=== PATIENT | female | born 1990 ===

== ENCOUNTER 2022-11-11 09:17 | Outpatient (REF) | payer BC, SELFPAY ==
[2022-11-11 09:47] LABS: MANUAL DIFF FLAG NO
[2022-11-11 10:01] LABS: Basophils Percent Auto 0.4 % (0-2); Eosinophils Absolute Auto 0.4 X10*3/uL (0.0-0.4); Eosinophils Percent Auto 4.6 % (0-4); Hematocrit 38.1 % (37.0-47.0); Imm Gran Abs Auto 0.02 X10*3/uL (0.00-0.03); Imm Gran Pct Auto 0.2 % (0.0-0.4); Lymphocytes Absolute Auto 2.8 X10*3/uL (1.2-4.9); Lymphocytes Percent Auto 34.1 % (20-40); Mean Corpuscular HGB Conc 34.1 g/dl (31.0-35.0); Mean Corpuscular Volume 87.8 fL (80.0-98.0); Mean Platelet Volume 9.9 fL (9.4-12.3); Monocytes Absolute Auto 0.4 X10*3/uL (0.1-1.2); Monocytes Percent Auto 4.4 % (2-11); Neutrophils Absolute Auto 4.6 x10*3/uL (2.0-8.3); Neutrophils Percent Auto 56.3 % (45-73); Platelet Count 409 X10*3/uL (160-400); Red Blood Count 4.34 X10*6/uL (4.20-5.50); Red Cell Distribution Width 11.6 % (11.0-16.0); White Blood Count 8.2 X10*3/uL (4.8-10.8)
[2022-11-11 10:50] LABS: Alanine Aminotransferase 25 U/L (0-31); Albumin Level 4.3 g/dL (3.5-5.0); Alkaline Phosphatase 90 U/L (39-117); Anion Gap 11 (12-20); Aspartate Amino Transferase 22 U/L (5-31); Bilirubin Direct 0.1 mg/dL (0.0-0.5); Bilirubin Total 0.4 mg/dL (0.0-1.0); Blood Urea Nitrogen 7 mg/dL (9-16); Calcium 9.6 mg/dL (8.4-10.2); Carbon Dioxide 25 mmol/L (22-29); Chloride 105 mmol/L (96-108); Cholesterol 307 mg/dL; Estimated Glomerular Filt Rate > 60; Glucose Random 102 mg/dL (60-115); HDL Cholesterol 44 mg/dL; LDL Cholesterol Calculated 189 mg/dl; Potassium 4.4 mmol/L (3.3-5.1); Sodium 137 mmol/L (135-145); Total Protein 7.8 g/dL (6.5-8.0); Triglycerides 372 mg/dL
[2022-11-11 11:09] LABS: HBS Num1 0.66 mIU/mL (0-7.99); HBc Num1 0.13 S/CO (0.00-0.79); HBsAGNum1 0.36 S/CO (0.00-0.99); Hepatitis B Core Antibody Nonreactive (Nonreactive); Hepatitis B Surface Antigen Negative (Negative); ~Hepatitis B Surface Antibody NONREACTIVE (Nonreactive)
[2022-11-13 12:32] LABS: TS Negative Control Passed; TS Panel A 0; TS Panel B 1; TS Positive Control Passed; TSpotTB Negative (Negative)
[2022-11-13 19:04] LABS: HCV Log PCR <1.18 NOT DETECTED Log IU/mL (NOT DETECTED); HepC Viral Load <15 NOT DETECTED IU/mL (NOT DETECTED)
== END 2022-11-11 09:18 | disposition home or self-care (01) ==
LOC: HO.LAB 09:17
PROVIDERS: Visit Provider Physician Assistant Medical
DX: L40.0 Psoriasis vulgaris (principal); D23.62 Other benign neoplasm of skin of left upper limb, including shoulder
CPT/HCPCS: 36415; 80048; 80061; 80076; 85025; 86481; 86704; 86706; 87340; 87522

== ENCOUNTER 2023-05-24 11:01 | Outpatient (AMB) | payer BC, SELFPAY ==
--- NOTE | 2023-05-24 11:08 | A.OFFPC_ITS ---
Vital Signs 05/24/23 11:18 Height 5 ft 0.5 in Weight 165 lb BMI 31.7 BP 116/68 Blood Pressure Location Lt brachial Position Sitting Respiration 13 Pulse 99 Pulse Source Pulse Oximeter Temp 96.4 F L Temp Source Temporal Artery Scan Pulse Oximetry (%) 96 Oxygen Delivery Method Room Air Intake Visit Reasons: transfer from [facility], request a physical Intake Note: Patient is here for the first time as she has not been seen in several years. Patient mentions the following concerns: 1. Increase of migraines, inconsistent. 2. Left eye pain/twitching when under extreme stress 3. Patient reports inconsistent, heavy periods and is concerned for reproductive health 4. Patient notices an increase in weight 5. Hair thinning, main area on the right side of scalp. 6. Patient reports severe plaque psoriasis, see's [facility]. 7. Possibility of IBS. Public Information Officer Required: No Accompanied by: self Allergies No Known Allergies Allergy (Verified 05/24/23 11:35) Medication List - Last Reconciled 05/24/23 by DAIN Swenson- albuterol sulfate 1.25 mg inhalation QID PRN albuterol sulfate 90 mcg/actuation 2 puffs inhalation Q6H PRN cetirizine (Zyrtec) 10 mg PO DAILY PRN ixekizumab (Taltz Syringe) mg subcut triamcinolone acetonide 0.1% appl topical Tobacco use date assessed: 05/24/23 Dental Screening Dental Screen Date: 05/24/23 Did you have a dental visit in the last 12 months?: Yes Did you have a dental problem in the last 6 months where you did not have access to dental care?: No Was dental information given to patient?: Patient has dentist HPI HPI Comments History of Present Illness Details no previous medical records Here today for CPE. 32-year-old female with hyperlipidemia, psoriasis, migraines, mild intermittent asthma, seasonal allergies, bilat TMJ, MDD, PTSD, onychomycosis Health maintenance: pap not active currently - referral placed today vaccines: flu shot - will do today. Thinks otherwise UTD, will investigate Tdap. Dental - routine Skin - Derm active Specialists: Derm Opth[facility] - wears glasses Surgery - denies Hospital stays - none recent She is adopted Family hx of cancer - cannot explain further. Family history: Mom alive. Hx of heart condition unsure Father alive 2 brothers, 1 sister older, younger half brother on Dads side [facility] Medical History (Updated 05/24/23 @ 13:30 by Josi Couch CMA) Seasonal allergies Psoriasis Surgical History (Updated 05/24/23 @ 13:31 by Josi Couch CMA) No pertinent past surgical history Social History (Updated 05/24/23 @ 11:33 by Josi Couch CMA) Household Members: Other Household Members Other:: 2 roommates Housing: Apart[address] 75 years or older and lives alone: No Alcohol intake: current Alcohol intake frequency: holidays/special occasions only Patient Tobacco Use Status: Never used Tobacco e-Cigarette/Vaping Use: Never Used Substance Use Type: Marijuana service: No Current occupational status: employed Current occupation: [employer] Cognitive needs: No Hearing needs: No Vision needs: No Questionnaire PHQ-9 Over the last 2 weeks, how often have you been bothered by any of the following problems? 1. Little interest or pleasure in doing things: not at all 2. Feeling down, depressed, or hopeless: not at all 3. Trouble falling or staying asleep, or sleeping too much: not at all 4. Feeling tired or having little energy: not at all 5. Poor appetite or overeating: not at all 6. Feeling bad about yourself - or that you are a failure or have let yourself or your family down: not at all 7. Trouble concentrating on things, such as reading the newspaper or watching television: not at all 8. Moving or speaking so slowly that other people could have noticed. Or the opposite - being so fidgety or restless that you have been moving around a lot more than usual: not at all 9. Thoughts that you would be better off or of hurting yourself in some way: not at all Total score: 0 Depression Screening Interpretation: Negative Depression Screening Done: Yes 63246 - PHQ-9 Billing: Yes Source: Developed by Drs. Louie Monet, Georgiana Smith, Benjamin Mojica and colleagues, with an educational lakeisha from [employer]. Thrive Questionnaire Date Thrive assessed: 05/24/23 I am a: Patient What is your living situation today?: I have a steady place to live Within the past 12 months, did the food you bought not last and you didn't have the money to get more?: Never true Within the past 12 months, did you worry whether your food would run out before you got money to buy more?: Never true Do you have trouble paying for medicines?: No Do you have trouble getting transportation to medical appointments?: No Do you have trouble paying your heating and electricity bill?: No Do you have trouble taking care of your child, family member or friend?: No Do you have trouble with day-to-day activities such as bathing, preparing meals, shopping, managing finances, etc.?: No Are you currently unemployed and looking for a job?: No Are you interested in more education?: No Please select the resources that you would like help with: None Currently or been in a relationship where the following occur: no concerns reported THRIVE Score: 0 AUDIT C Alcohol Use Questionnaire (AUDIT-C) 1. How often do you have a drink containing alcohol?: Never 3. How often do you have six or more drinks on one occasion?: Never Total Score: 0 Score Reviewed/Action Taken: Yes THERESA-7 AMB Questionnaire THERESA-7 Date THERESA - 7 assessed: 05/24/23 Feeling nervous, anxious, or on edge: 0 = Not at all Not being able to stop or control worryin = Not at all Worrying too much about different things: 0 = Not at all Trouble relaxin = Not at all Being so restless that it is hard to sit still: 0 = Not at all Becoming easily annoyed or irritable: 0 = Not at all Feeling afraid as if something awful might happen: 0 = Not at all Total THERESA-7 score (0-4 normal; 5-9 mild; 10-14 moderate; 15-21 severe): 0 Source: Developed by Drs. Louie Monet, Georgiana Smith, Benjamin Mojica and colleagues, with an educational lakeisha from [employer]. THERESA-7 Assessment Billing THERESA-7 Assessment Tool: THERESA-7 Assessment 16914 Review of Systems Const Details: Constitutional: Denies fever. Skin: Denies rash. Eye: Denies eye pain. ENMT: Denies sore throat and nasal congestion. Respiratory: Denies shortness of breath and cough. Gastrointestinal: Denies nausea, vomiting or abdominal pain. Cardiovascular: Denies chest pain and syncope. Genitourinary: Denies dysuria. Musculoskeletal: Denies back pain and extremity pain. Neurologic: Denies headaches, confusion, and weakness. Psychiatric: Denies suicidal thoughts and substance abuse. Allergy/ Immunologic: Denies impaired immunity. Physical exam (Primary Care) Vital Signs: Last Vital Signs Temp 96.4 F L 05/24/23 11:18 Pulse 99 05/24/23 11:18 Resp 13 05/24/23 11:18 BP 116/68 05/24/23 11:18 Pulse Ox 96 05/24/23 11:18 Oxygen Delivery Method Room Air 05/24/23 11:18 BMI result Body Mass Index 31.7 BMI Assessment/Plan discussion: High BMI High, discussed plan: lifestyle Tobacco/Smoking Status: Tobacco use Status Tobacco use date assessed 05/24/23 05/24/23 11:33 Patient Tobacco Use Status Never used Tobacco 05/24/23 11:33 e-Cigarette/Vaping Use Never Used 05/24/23 11:33 PHQ-9: PHQ-9 Score PHQ-9: Total score 0 05/24/23 13:29 Depression Screening Interpretation: Negative Thrive Assessment: Date of Thrive Assessment Date Thrive assessed 05/24/23 05/24/23 11:34 Currently or been in a relationship where the following occur: no concerns reported Const Other: General: Well developed, well nourished, in no acute distress. Appears stated age. Head: Normocephalic, atraumatic. Eyes: Pupils are equal, round and reactive to light and accommodation. Conjunctivae are clear. Vision grossly normal. Ears: TMs clear AU, EACS WNL Nose: Patent, without discharge. Mouth: There are no ulcers or lesions noted. No inflammation, no post nasal drip, no plaques nor exudates. Neck: Supple, no adenopathy or thyromegaly. Lungs: Clear to auscultation bilaterally. No rales, rhonchi or wheeze noted. Good air flow in all [place]. Heart: Regular rate and rhythm. No murmurs, click, rubs or gallops are noted. Abdomen: Bowel sounds present in all quadrants. The abdomen is soft, TENDER IN LLQ WITH PERITEONAL SIGNS. PT REPORTS CHRONIC, with no masses or organomegaly noted. No hernias are noted. Musculoskeletal: Joints are nontender, without swelling, redness, or effusions. Range of motion is observed to be normal. Pulses: Peripheral pulses are equal and palpable bilaterally. Extremities: No clubbing, cyanosis nor edema is noted. Neurologic: Gait and station normal. Cranial Nerves 2-12 intact. Motor strength grossly symmetrical and intact. No sensory loss. Balance normal. Skin: No rashes, ulcers, or lesions noted. Turgor is good. Skin color is good. FUNGAL TOE NAILS BILAT FEET Psych: Normal eye contact, affect and mood appropriate, and normal interactions. Patient is alert and appropriate to context. Office Procedures Flu Questionnaire Does the patient have a severe egg allergy?: No Does the patient have severe life threatening allergies?: No Does the patient have a fever or illness today?: No Has the patient ever had Guillain-Comstock Syndrome?: No Has the patient ever had any past reaction to a flu shot?: No Immunizations flu vacc [id number] 6mos up(PF) 60 mcg(15 mcgx4)/0.5 mL IM syringe Performing Provider: LAMBERT Swenson Performing Location: [facility] Administered by: Josi Couch CMA on 05/24/23 12:25 Dose Route Admin Location Dispensed Lot Number Expiration Date NDC Material Mixer 0.5 mL IM Left Deltoid 0.5 mL [id number] 09/26/23 09663-892-35 Visual Revenue VIS Given Date VIS Provided VIS Publication Date 05/24/23 Single Vaccine 20 Eligibility Eligibility Date Funding Source Not [facility] Eligible 05/24/23 Private Assessment and Plan Assessment & Plan (1) Annual physical exam: Code(s): Z00.00 - Encounter for general adult medical examination without abnormal findings (2) Hyperlipidemia: Comment: Noted on labs October of 2022. We will repeat and follow up with her. Code(s): E78.5 - Hyperlipidemia, unspecified Qualifiers: Hyperlipidemia type: mixed hyperlipidemia Qualified Code(s): E78.2 - Mixed hyperlipidemia (3) Laboratory exam ordered as part of routine general medical examination: Code(s): Z00.00 - Encounter for general adult medical examination without abnormal findings (4) Cervical cancer screening: Code(s): Z12.4 - Encounter for screening for malignant neoplasm of cervix Plan: Refer to [place] [facility] for routine female care to include Pap smear (5) Oligomenorrhea: Comment: Refer to [place] [facility] for evaluation and treatment Code(s): N91.5 - Oligomenorrhea, unspecified Qualifiers: Oligomenorrhea type: unspecified type Qualified Code(s): N91.5 - Ol igomenorrhea, unspecified (6) Onychomycosis: Comment: Affecting toenails bilat feet. Encouraged her to ask Dermatology whom she is currently active with about this. Educated on the chronicity of this problem. She reports that she does not have a lot of funds to manage her medical care and would like to reduce referrals and workup at this time. Encouraged vinegar and water soaks every night. Avoiding dark-colored [place]. Use of topical salicylic acid or the like to help. If interested in the future refer to Podiatry Code(s): B35.1 - Tinea unguium (7) Psoriasis: Comment: Managed by Dr. Gonzalez dermatology. Currently receiving [facility] Code(s): L40.9 - Psoriasis, unspecified (8) MDD (major depressive disorder): Comment: PHQ 0 TODAY. NOT CURRENTLY ON ANY MEDICATIONS OR ACTIVE WITH A COUNSELOR. PATIENT WAS TEARFUL DURING EXAM WHEN TALKING ABOUT HER HISTORY. WE WILL NEED TO CONTINUE TO FOLLOW UP ON THIS AT FUTURE VISITS Code(s): F32.9 - Major depressive disorder, single episode, unspecified Qualifiers: Active/Remission status: in full remission Major depression recurrence: recurrent Qualified Code(s): F33.42 - Major depressive disorder, recurrent, in full remission (9) Seasonal allergic rhinitis: Comment: CHRONIC, MANAGED BY [id number] ANTIHISTAMINES. CONTINUE Code(s): J30.2 - Other seasonal allergic rhinitis Qualifiers: Allergic rhinitis trigger: unspecified Qualified Code(s): J30.2 - Other seasonal allergic rhinitis (10) Mild intermittent asthma in adult without complication: Comment: WITH P.R.N. USE OF MICHELLE ONLY. Code(s): J45.20 - Mild intermittent asthma, uncomplicated (11) Migraine headache without aura: Comment: MANAGED BY [id number] MEDICATIONS. Code(s): G43.009 - Migraine without aura, not intractable, without status migrainosus Qualifiers: Intractability: not intractable Status migrainosus presence: without status migrainosus Qualified Code(s): G43.009 - Migraine without aura, not intractable, without status migrainosus Orders: Orders Influenza [id number] Immunization Today Z23 - Encounter for immunization Lipid Panel Today E78.5 - Hyperlipidemia, unspecified, Z00.00 - Encounter for general adult medical examination without abnormal findings TSH reflex Free T4 Today E78.5 - Hyperlipidemia, unspecified, Z00.00 - Encounter for general adult medical examination without abnormal findings Referrals [facility] Referral N91.5 - Oligomenorrhea, unspecified, Z12.4 - Encounter for screening for malignant neoplasm of cervix Patient Instructions: Health screenings for women ages 18 to 39 You should visit your health care provider from time to time, even if you are healthy. The purpose of these visits is to: Screen for medical issues Assess your risk for future medical problems Encourage a healthy lifestyle Update vaccinations and other preventive care services Help you get to know your provider in case of an illness Information Even if you feel fine, you should still see your provider for regular checkups. These visits can help you avoid problems in the future. For example, the only way to find out if you have high blood pressure is to have it checked regularly. High blood sugar and high cholesterol levels also may not have any symptoms in the early stages. A simple blood test can check for these conditions. There are specific times when you should see your provider or receive specific health screenings. The [place] Preventive Services Task Force publishes a list of recommended screenings. Below are screening guidelines for women ages 18 to 39. BLOOD PRESSURE SCREENING Your blood pressure should be checked at least once every 3 to 5 years if: Your blood pressure is in the normal range (top number less than 120 mm Hg and bottom number less than 80 mm Hg) You don't have risk factors for high blood pressure Ask your provider if you need your blood pressure checked more often if: The top number is 120 to 129 mm Hg or the bottom number is 70 to 79 mm Hg You have diabetes, heart disease, kidney problems, are overweight, or have certain other health conditions You have a first-degree relative with high blood pressure You are Black You had high blood pressure during a If the top number is 130 mm Hg or greater or the bottom number is 80 mm Hg or greater, this is considered stage 1 hypertension. Schedule an appointment with your provider to learn how you can reduce your blood pressure. Watch for blood pressure screenings in your area. Ask your provider if you can stop in to have your blood pressure checked. BREAST CANCER SCREENING Experts do not agree about the benefits of breast self-exams in finding breast cancer or saving lives. Talk to your provider about what is best for you. A screening mammogram is not recommended for most women under age 40. Your provider may discuss and recommend mammograms, MRI scans, or ultrasounds if you have an increased risk for breast cancer, such as: A mother or sister who had breast cancer at a young age (most often starting s creening earlier than the age the close relative was diagnosed) You carry a high-risk genetic marker CERVICAL CANCER SCREENING Cervical cancer screening should start at age 21 years unless your provider advises otherwise. After the first test: Women ages 21 through 29 should have a Pap test every 3 years. Exoprts do not agree on whether HPV testing is recommended for this age group. Women ages 30 through 65 should be screened with either a Pap test every 3 years or the HPV test every 5 years or both tests every 5 years (called cotesting ). Women who have been treated for precancer (cervical dysplasia) should continue to have Pap tests for 20 years after treatment or until age 65, whichever is longer. If you have had your uterus and cervix removed (total hysterectomy), and you have not been diagnosed with cervical cancer or precancer (high grade cervical neoplasia), you do not need cervical cancer screening. CHOLESTEROL SCREENING Cholesterol screening should begin at: Age 45 for women with no known risk factors for coronary heart disease Age 20 for women with known risk factors for coronary heart disease Repeat cholesterol screening should take place: Every 5 years for women with normal cholesterol levels More often if changes occur in lifestyle (including weight gain and diet) More often if you have diabetes, heart disease, kidney problems, or certain other conditions DIABETES SCREENING You should be screened for diabetes starting at age 35 and then repeated every 3 years if you have no risk factors for diabetes. Screening may need to start earlier and be repeated more often if you have other risk factors for diabetes, such as: You have a first degree relative with diabetes. You are overweight or have obesity. You have high blood pressure, prediabetes, or a history of heart disease. Screening for diabetes should be done if you are planning to become and you are overweight and have other risk factors such as high blood pressure. DENTAL EXAM Go to the dentist once or twice every year for an exam and cleaning. Your dentist will evaluate if you need more frequent visits. EYE EXAM Have an eye exam every 5 to 10 years before age 40. If you have vision problems, have an eye exam every 2 years or more often if recommended by your provider. You should have an eye exam that includes an examination of your retina (back of your eye) at least every year if you have diabetes. IMMUNIZATIONS Commonly needed vaccines include: Flu shot: get one every year. COVID-19 vaccine: ask your provider what is best for you. Tetanus-diphtheria and acellular pertussis (Tdap) vaccine: have one at or after age 19 as one of your tetanus-diphtheria vaccines if you did not receive it as an adolescent. Tetanus-diphtheria: have a booster (or Tdap) every 10 years. Varicella vaccine: receive 2 doses if you never had chickenpox or the varicella vaccine. Hepatitis B vaccine: receive 2, 3, or 4 doses, depending on your exact circumstances. Measles, mumps, and rubella (MMR) vaccine: receive 1 to 2 doses if you are not already immune to MMR. Your provider can tell you if you are immune. Ask your provider about the human papillomavirus (HPV) vaccine if: You have not received the HPV vaccine in the past You have not completed the full vaccine series (you should catch up on this shot) Ask your provider if you should receive other immunizations if you have certain health problems that increase your risk for some diseases such as pneumonia. INFECTIOUS DISEASE SCREENING Women who are sexually active should be screened for chlamydia and gonorrhea up until age 25. Women 25 years and older should be screened for chlamydia and gonorrhea if at high risk. Screening for hepatitis C: All adults ages 18 to 79 should get a one-time test for hepatitis C. people should be screened at every . Screening for human immunodeficiency virus (HIV): All people ages 15 to 65 should get a one-time test for HIV. Depending on your lifestyle and medical history, you may also need to be screened for infections such as syphilis and HIV, as well as other infections. PHYSICAL EXAM All adults should visit their provider from time to time, even if they are healthy. The purpose of these visits is to: Screen for disease Assess your risk of future medical problems Encourage a healthy lifestyle Update your vaccinations and other preventive care services Maintain a relationship with a provider in case of an illness Your height, weight, and BMI should be checked at every exam. During your exam, your provider may ask you about: Depression and anxiety Diet and exercise Alcohol and tobacco use Safety issues, such as using seat belts, smoke detectors, and intimate partner violence Your medicines and risk for interactions SKIN SELF-EXAM Your provider may check your skin for signs of skin cancer, especially if you're at high risk, such as if you: Have had skin cancer before Have close relatives with skin cancer Have a weakened immune system OTHER SCREENING Talk with your provider about colon cancer screening if you have a strong family history of colon cancer or polyps, or if you have had inflammatory bowel disease or polyps yourself. Routine bone density screening of women under 40 is not recommended. Coding Level of Care Code New Pt Prev Care 18-39yr([id number] Diagnoses Annual physical exam Z00.00 Mixed hyperlipidemia E78.2 Hyperlipidemia type: mixed hyperlipidemia Laboratory exam ordered as part of routine general medical examination Z00.00 Cervical cancer screening Z12.4 Oligomenorrhea, unspecified type N91.5 Oligomenorrhea type: unspecified type Onychomycosis B35.1 Psoriasis L40.9 Recurrent major depressive disorder, in full remission F33.42 Active/Remission status: in full remission Major depression recurrence: recurrent Seasonal allergic rhinitis, unspecified trigger J30.2 Allergic rhinitis trigger: unspecified Mild intermittent asthma in adult without complication J45.20 Migraine without aura and without status migrainosus, not intractable G43.009 Intractability: not intractable Status migrainosus presence: without status migrainosus Additional Codes THERESA-7 Assessment Billing - THERESA-7 Assessment Tool: THERESA-7 Assessment 26095 ([id number])
[2023-05-24 11:18] VITALS: BP 116/68; PULSE 99; RESP 13; TEMP 35.8; O2SAT 96; BMI 31.7
== END 2023-05-24 12:23 | disposition home or self-care (01) ==
PROVIDERS: PCP Nurse Practitioner Family; Visit Provider Nurse Practitioner Family
DX: Z00.00 Encounter for general adult medical examination without abnormal findings (principal); E78.2 Mixed hyperlipidemia; F33.42 Major depressive disorder, recurrent, in full remission; Z23 Encounter for immunization; L40.9 Psoriasis, unspecified; N91.5 Oligomenorrhea, unspecified; B35.1 Tinea unguium; J30.2 Other seasonal allergic rhinitis; J45.20 Mild intermittent asthma, uncomplicated; G43.009 Migraine without aura, not intractable, without status migrainosus
CPT/HCPCS: 90471; 90686; 99385

== ENCOUNTER 2024-03-20 13:20 | Outpatient (REF) | payer BC, SELFPAY ==
[2024-03-23 01:57] LABS: TS Negative Control Passed; TS Panel A 0; TS Panel B 0; TS Positive Control Passed; TSpotTB Negative (Negative)
== END 2024-03-20 13:21 | disposition home or self-care (01) ==
LOC: HO.LAB 13:20
PROVIDERS: Visit Provider Physician Assistant Medical
DX: L40.0 Psoriasis vulgaris (principal)
CPT/HCPCS: 36415; 86481

== ENCOUNTER 2024-05-26 08:04 | Outpatient (AMB) | payer BC, SELFPAY ==
--- NOTE | 2024-05-26 08:15 | MHC.PC.OV ---
Vital Signs 05/26/24 08:21 Height 5 ft 1 in Weight 160 lb 4 oz BMI 30.3 BP 98/66 Blood Pressure Location Lt brachial Position Sitting Respiration 12 Pulse 99 Pulse Source Pulse Oximeter Temp 97.1 F Temp Source Oral Pulse Oximetry (%) 98 Oxygen Delivery Method Room Air Intake Visit Reasons: CPE Intake Note: annual cpe, patient also needs referral for extruder tender, and patient complaining of blood blisters all around her body Motor Equipment Lieutenant Required: No Allergies No Known Allergies Allergy (Verified 05/26/24 08:31) Medication List - Last Reconciled 05/26/24 by Carrie Vogt, REAL ESTATE DIRECTOR- albuterol sulfate 1.25 mg inhalation QID PRN albuterol sulfate 90 mcg/actuation 2 puffs inhalation Q6H PRN cetirizine (Zyrtec) 10 mg PO DAILY PRN ixekizumab (Taltz Syringe) mg subcut triamcinolone acetonide 0.1% appl topical Tobacco use date assessed: 05/26/24 Dental Screening Dental Screen Date: 05/26/24 Did you have a dental visit in the last 12 months?: Yes Did you have a dental problem in the last 6 months where you did not have access to dental care?: No Was dental information given to patient?: Patient has dentist HPI HPI Comments History of Present Illness Details Here today for CPE. 33-year-old female with hyperlipidemia, psoriasis, migraines, mild intermittent asthma, seasonal allergies, bilat TMJ, MDD, PTSD, onychomycosis, hypermobility, IBS Health maintenance: pap not active currently - referral placed today vaccines: flu shot - will do today along w/ Tdap Dental - routine Skin - Derm active Specialists: Derm Optho - wears glasses [facility] - denies Hospital stays - none recent She is adopted Family hx of cancer - cannot explain further. Family history: Mom alive. Hx of heart condition unsure Father alive 2 brothers, 1 sister older, younger half brother on Dads side - The patient is a 33-year-old female presenting for an annual wellness exam and chronic condition management. - Noted history of hyperlipidemia, with past elevated cholesterol. - Psoriasis treated with biologics, currently on Taltz. - Migraines occur occasionally, most notably last winter. - Asthma managed primarily with albuterol inhaler; recent RSV episode managed with urgent care visit. - Allergies managed with [id number] medications like Zyrtec. - Expressed interest in exploring fertility options. - Discussed current stress exacerbated by housing instability. Social History - Housing instability noted, temporary accommodation in [place]. - Desires referral to dietitian for obesity management but wants to wait d/t cost @ this time - Uses marijuana, has prior use reported. - Exercises including yoga, but currently lifestyle is more sedentary. - Stress from housing situation impacting well-being; seeks stability. - Past weight fluctuations noted. Review of Systems - Respiratory: Reports episodes of asthma, recent RSV. : IBS - Musculoskeletal: joint hypermobility, knees dislocate, L shoulder, transverse low back; generalized aches - Neurological: Reports history of migraines, last exacerbated in winter. - Allergic/Immunologic: Reports seasonal allergies managed with Zyrtec. Physical Exam General: Well developed, well nourished, in no acute distress. Appears stated age. Head: Normocephalic, atraumatic. Eyes: Pupils are equal, round and reactive to light and accommodation. Conjunctivae are clear. Vision grossly normal. Ears: TMs clear AU, EACS WNL Nose: Patent, without discharge.Mouth: There are no ulcers or lesions noted. No inflammation, no post nasal drip, no plaques nor exudates. Neck: Supple, no adenopathy or thyromegaly. Breast: Edu on SBE Lungs: Clear to auscultation bilaterally. No rales, rhonchi or wheeze noted. Good air flow in all [place]. Heart: Regular rate and rhythm. No murmurs, click, rubs or gallops are noted. Abdomen: Bowel sounds present in all quadrants. The abdomen is soft, nontender, with no masses or organomegaly noted. No hernias are noted. : Deferred. Reviewed recommendations for routine [facility] Musculoskeletal: Joints are nontender, without swelling, redness, or effusions. Range of motion is hypermobile Pulses: Peripheral pulses are equal and palpable bilaterally. Extremities: No clubbing, cyanosis nor edema is noted. Neurologic: Gait and station normal. Cranial Nerves 2-12 intact. Motor strength grossly symmetrical and intact. No sensory loss. Balance normal. Skin: No rashes, ulcers, or lesions noted. Turgor is good. Skin color is good. Hair and nails are without abnormalities. Psych: Normal eye contact, affect and mood appropriate, and normal interactions. Patient is alert and appropriate to context. Results - Labs: Past labs in 2022 indicated high cholesterol levels. Discussion Notes During the consultation, we reviewed the patient's chronic health issues and management strategies. This included counseling about the significance of continuing Tdap and influenza vaccinations, even in the context of biologic treatments like Taltz. We discussed an extensive referral network, addressing OBGYN and rheumatology consultation for hypermobility and concerns about fertility. I advised signing up for the patient portal to facilitate better management of referrals and appointments. We discussed the possibility of dietary support with a dietitian contingent on insurance coverage. Housing instability was addressed as a factor impacting stress and health, and anticipatory guidance was given towards achieving better housing stability. - Recommends Tdap and influenza vaccinations during visit. - Encouraged joining patient portal for improved communication. - Discussed benefits of non-live vaccines despite ongoing immunosuppressive therapy. - Discussed regular check-in with specialist dietary support. Assessment and Plan 1. Hyperlipidemia: Patient shows a history of elevated cholesterol. Reviewing recent lab results and planning lifestyle modifications. 2. Psoriasis: Currently managed with Taltz, which has shown adequate control. Continuing to encourage vaccination as safe with current medication despite potential immune suppression. 3. Migraines: Current management effective; advised patient to follow up if migraines increase in frequency. 4. Asthma: Continuing use of albuterol inhaler for intermittent asthma symptoms. Verified with patient on availability of medication refill. 5. Allergies: Seasonal allergies controlled with Zyrtec. No changes required at this time. 6. PTSD: Continuing with current management framework. 7. Obesity: Discussed the importance of dietary adjustments and established referral to dietitian when able 8. Fertility: Referral to OBGYN made for further evaluation of fertility health. Patient Instructions - Schedule and maintain follow-up appointments with OBGYN and rheumatology as discussed. - Use albuterol inhaler as needed and ensure availability through timely refills. - Continue taking Zyrtec for allergy management as needed. - Check the patient portal regularly for updates and follow up with referrals. - Engage in stress-reducing activities when possible. - Maintain a healthy lifestyle: consider dietary modifications and regular physical activity such as yoga. - Tdap and Flu today - Declined labs - RTO 1 year CPE sooner PRN Consent During the visit, I reviewed with the patient the plan to administer the Tdap and influenza vaccines, explaining they are non-live and safe to take with her current Taltz treatment. We discussed potential side effects and the importance of these vaccines in her ongoing health maintenance. The patient consented verbally to receiving both vaccinations during the appointment. Patient was informed and verbally consented to the use of an ambient scribe for clinic note documentation during this visit. [facility] Medical History (Updated 05/26/24 @ 09:07 by VIET Swenson) Psoriasis Seasonal allergies Surgical History (Updated 05/24/23 @ 13:31 by Josi Couch [facility]) No pertinent past surgical history Social History (Updated 05/24/23 @ 11:33 by Josi Couch CMA) Household Members: Other Household Members Other:: 2 roommates Housing: Apartment 75 years or older and lives alone: No Alcohol intake: current Alcohol intake frequency: holidays/special occasions only Patient Tobacco Use Status: Never used Tobacco e-Cigarette/Vaping Use: Never Used Substance Use Type: Marijuana service: No Current occupational status: employed Current occupation: [employer] Cognitive needs: No Hearing needs: No Vision needs: No Questionnaire PHQ-9 Over the last 2 weeks, how often have you been bothered by any of the following problems? 1. Little interest or pleasure in doing things: not at all 2. Feeling down, depressed, or hopeless: not at all 3. Trouble falling or staying asleep, or sleeping too much: not at all 4. Feeling tired or having little energy: several days 5. Poor appetite or overeating: not at all 6. Feeling bad about yourself - or that you are a failure or have let yourself or your family down: not at all 7. Trouble concentrating on things, such as reading the newspaper or watching television: not at all 8. Moving or speaking so slowly that other people could have noticed. Or the opposite - being so fidgety or restless that you have been moving around a lot more than usual: not at all 9. Thoughts that you would be better off or of hurting yourself in some way: not at all Total score: 1 Depression Screening Interpretation: Negative Depression Screening Done: Yes 85188 - PHQ-9 Billing: Yes Source: Developed by Drs. Louie LGeorgiana Doherty Kurt Kroenke and colleagues, with an educational lakeisha from [employer]. Thrive Questionnaire Date Thrive assessed: 05/26/24 I am a: Patient What is your living situation today?: I choose not to answer this question Within the past 12 months, did the food you bought not last and you didn't have the money to get more?: Never true Within the past 12 months, did you worry whether your food would run out before you got money to buy more?: Never true Do you have trouble paying for medicines?: No Do you have trouble getting transportation to medical appointments?: No Do you have trouble paying your heating and electricity bill?: No Do you have trouble taking care of your child, family member or friend?: No Do you have trouble with day-to-day activities such as bathing, preparing meals, shopping, managing finances, etc.?: No Are you currently unemployed and looking for a job?: No Are you interested in more education?: No Please select the resources that you would like help with: None Currently or been in a relationship where the following occur: No concerns reported THRIVE Score: 0 AUDIT C Alcohol Use Questionnaire (AUDIT-C) 1. How often do you have a drink containing alcohol?: Monthly or less 2. How many drinks containing alcohol do you have on a typical day when you are drinking?: 1 or 2 3. How often do you have six or more drinks on one occasion?: Never Total Score: 1 Score Reviewed/Action Taken: Yes THERESA-7 AMB Questionnaire THERESA-7 Date THERESA - 7 assessed: 05/26/24 Feeling nervous, anxious, or on edge: 0 = Not at all Not being able to stop or control worryin = Not at all Worrying too much about different things: 0 = Not at all Trouble relaxin = Not at all Being so restless that it is hard to sit still: 0 = Not at all Becoming easily annoyed or irritable: 0 = Not at all Feeling afraid as if something awful might happen: 0 = Not at all Total THERESA-7 score (0-4 normal; 5-9 mild; 10-14 moderate; 15-21 severe): 0 Source: Developed by Georgiana Villagran Kurt Kroenke and colleagues, with an educational lakeisha from [employer]. THERESA-7 Assessment Billing THERESA-7 Assessment Tool: THERESA-7 Assessment 55300 ACT Questionnaire In the past 4 weeks, how much of the time did your asthma keep you from getting as much done at work, school or at home?: None of the time During the past 4 weeks, how often have you had shortness of breath?: Not at all During the past 4 weeks, how often did your asthma symptoms wake you up at night or earlier than usual in the morning?: Not at all During the past 4 weeks, how often have you had to use your rescue inhaler or nebulizer medication?: Not at all How would you rate your asthma control during the past 4 weeks?: Completely controlled ACT Interpretation: Negative Score: 25 Physical exam (Primary Care) Vital Signs: Last Vital Signs Temp 97.1 F 05/26/24 08:21 Pulse 99 05/26/24 08:21 Resp 12 05/26/24 08:21 BP 98/66 05/26/24 08:21 Pulse Ox 98 05/26/24 08:21 Oxygen Delivery Method Room Air 05/26/24 08:21 BMI result Body Mass Index 30.3 BMI Assessment/Plan discussion: High BMI High, discussed plan: lifestyle Tobacco/Smoking Status: Tobacco use Status Tobacco use date assessed 05/26/24 05/26/24 08:17 Patient Tobacco Use Status Never used Tobacco 05/26/24 08:17 e-Cigarette/Vaping Use Never Used 05/26/24 08:17 PHQ-9: PHQ-9 Score PHQ-9: Total score 1 05/26/24 08:17 Depression Screening Interpretation: Negative Thrive Assessment: Date of Thrive Assessment Date Thrive assessed 05/26/24 05/26/24 08:17 Currently or been in a relationship where the following occur: No concerns reported Coding Level of Care Code Est Pt Prev Care 18-39y(28770) Diagnoses Encounter for general adult medical examination without abnormal findings Z00.00 Need for Tdap vaccination Z23 Influenza vaccination administered at current visit Z23 Mixed hyperlipidemia E78.2 Hyperlipidemia type: mixed hyperlipidemia Recurrent major depressive disorder, in full remission F33.42 Major depression recurrence: recurrent Active/Remission status: in full remission Migraine without aura and without status migrainosus, not intractable G43.009 Status migrainosus presence: without status migrainosus Intractability: not intractable Mild intermittent asthma in adult without complication J45.20 Psoriasis L40.9 Seasonal allergic rhinitis, unspecified trigger J30.2 Allergic rhinitis trigger: unspecified BMI 30.0-30.9,adult Z68.30 Obesity (BMI 30.0-34.9) E66.811 Hypermobility syndrome M35.7 Additional Codes THERESA-7 Assessment Billing - THERESA-7 Assessment Tool: THERESA-7 Assessment 52541 ([id number]) PHQ-9 - 68468 - PHQ-9 Billing: Yes ([id number]) Asthma Control Questionnaire - ACT Interpretation: Negative ([id number]) Assessment & Plan Assessment & Plan (1) Encounter for general adult medical examination without abnormal findings: Code(s): Z00.00 - Encounter for general adult medical examination without abnormal findings (2) Need for Tdap vaccination: Code(s): Z23 - Encounter for immunization Category: Medical (3) Influenza vaccination administered at current visit: Code(s): Z23 - Encounter for immunization Category: Medical (4) Hyperlipidemia: Comment: Noted on labs October of 2022. Code(s): E78.5 - Hyperlipidemia, unspecified Category: Medical Qualifiers: Hyperlipidemia type: mixed hyperlipidemia Qualified Code(s): E78.2 - Mixed hyperlipidemia (5) MDD (major depressive disorder): Comment: PHQ 0 TODAY. NOT CURRENTLY ON ANY MEDICATIONS OR ACTIVE WITH A COUNSELOR. PATIENT WAS TEARFUL DURING EXAM WHEN TALKING ABOUT HER HISTORY. WE WILL NEED TO CONTINUE TO FOLLOW UP ON THIS AT FUTURE VISITS Code(s): F32.9 - Major depressive disorder, single episode, unspecified Category: Medical Qualifiers: Major depression recurrence: recurrent Active/Remission status: in full remission Qualified Code(s): F33.42 - Major depressive disorder, recurrent, in full remission (6) Migraine headache without aura: Comment: MANAGED BY [id number] MEDICATIONS. Code(s): G43.009 - Migraine without aura, not intractable, without status migrainosus Category: Medical Qualifiers: Status migrainosus presence: without status migrainosus Intractability: not intractable Qualified Code(s): G43.009 - Migraine without aura, not intractable, without status migrainosus (7) Mild intermittent asthma in adult without complication: Comment: WITH P.R.N. USE OF MICHELLE ONLY. Code(s): J45.20 - Mild intermittent asthma, uncomplicated Category: Medical (8) Psoriasis: Comment: Managed by Dr. Gonzalez dermatology. Currently receiving Candice Code(s): L40.9 - Psoriasis, unspecified Category: Medical (9) Seasonal allergic rhinitis: Comment: CHRONIC, MANAGED BY [id number] ANTIHISTAMINES. CONTINUE Code(s): J30.2 - Other seasonal allergic rhinitis Category: Medical Qualifiers: Allergic rhinitis trigger: unspecified Qualified Code(s): J30.2 - Other seasonal allergic rhinitis (10) BMI 30.0-30.9,adult: Code(s): Z68.30 - Body mass index [BMI] 30.0-30.9, adult Category: Medical (11) Obesity (BMI 30.0-34.9): Code(s): E66.811 - Obesity, class 1 Category: Medical (12) Hypermobility syndrome: Code(s): M35.7 - Hypermobility syndrome Category: Medical Plan . Orders: Referrals LUNCHROOM MOTHER Referral Z12.4 - Encounter for screening for malignant neoplasm of cervix Rheumatology Referral M35.7 - Hypermobility syndrome Medications: New albuterol sulfate 90 mcg/actuation 2 puffs inhalation Q6H PRN 6.7 grams 1RF bronchospasm Patient Instructions: Health screenings for women You should visit your health care provider from time to time, even if you are healthy. The purpose of these visits is to: Screen for medical issues Assess your risk for future medical problems Encourage a healthy lifestyle Update vaccinations and other preventive care services Help you get to know your provider in case of an illness Information Even if you feel fine, you should still see your provider for regular checkups. These visits can help you avoid problems in the future. For example, the only way to find out if you have high blood pressure is to have it checked regularly. High blood sugar and high cholesterol levels also may not have any symptoms in the early stages. A simple blood test can check for these conditions. There are specific times when you should see your provider or receive specific health screenings. The [place] Preventive Services Task Force publishes a list of recommended screenings. Below are screening guidelines for women ages 18 to 39. BLOOD PRESSURE SCREENING Your blood pressure should be checked at least once every 3 to 5 years if: Your blood pressure is in the normal range (top number less than 120 mm Hg and bottom number less than 80 mm Hg) You don't have risk factors for high blood pressure Ask your provider if you need your blood pressure checked more often if: The top number is 120 to 129 mm Hg or the bottom number is 70 to 79 mm Hg You have diabetes, heart disease, kidney problems, are overweight, or have certain other health conditions You have a first-degree relative with high blood pressure You are Black You had high blood pressure during a If the top number is 130 mm Hg or greater or the bottom number is 80 mm Hg or greater, this is considered stage 1 hypertension. Schedule an appointment with your provider to learn how you can reduce your blood pressure. Watch for blood pressure screenings in your area. Ask your provider if you can stop in to have your blood pressure checked. BREAST CANCER SCREENING Experts do not agree about the benefits of breast self-exams in finding breast cancer or saving lives. Talk to your provider about what is best for you. A screening mammogram is not recommended for most women under age 40. Your provider may discuss and recommend mammograms, MRI scans, or ultrasounds if you have an increased risk for breast cancer, such as: A mother or sister who had breast cancer at a young age (most often starting screening earlier than the age the close relative was diagnosed) You carry a high-risk genetic marker CERVICAL CANCER SCREENING Cervical cancer screening should start at age 21 years unless your provider advises otherwise. After the first test: Women ages 21 through 29 should have a Pap test every 3 years. Exoprts do not agree on whether HPV testing is recommended for this age group. Women ages 30 through 65 should be screened with either a Pap test every 3 years or the HPV test every 5 years or both tests every 5 years (called cotesting ). Women who have been treated for precancer (cervical dysplasia) should continue to have Pap tests for 20 years after treatment or until age 65, whichever is longer. If you have had your uterus and cervix removed (total hysterectomy), and you have not been diagnosed with cervical cancer or precancer (high grade cervical neoplasia), you do not need cervical cancer screening. CHOLESTEROL SCREENING Cholesterol screening should begin at: Age 45 for women with no known risk factors for coronary heart disease Age 20 for women with known risk factors for coronary heart disease Repeat cholesterol screening should take place: Every 5 years for women with normal cholesterol levels More often if changes occur in lifestyle (including weight gain and diet) More often if you have diabetes, heart disease, kidney problems, or certain other conditions DIABETES SCREENING You should be screened for diabetes starting at age 35 and then repeated every 3 years if you have no risk factors for diabetes. Screening may need to start earlier and be repeated more often if you have other risk factors for diabetes, such as: You have a first degree relative with diabetes. You are overweight or have obesity. You have high blood pressure, prediabetes, or a history of heart disease. Screening for diabetes should be done if you are planning to become and you are overweight and have other risk factors such as high blood pressure. DENTAL EXAM Go to the dentist once or twice every year for an exam and cleaning. Your dentist will evaluate if you need more frequent visits. EYE EXAM Have an eye exam every 5 to 10 years before age 40. If you have vision problems, have an eye exam every 2 years or more often if recommended by your provider. You should have an eye exam that includes an examination of your retina (back of your eye) at least every year if you have diabetes. IMMUNIZATIONS Commonly needed vaccines include: Flu shot: get one every year. COVID-19 vaccine: ask your provider what is best for you. Tetanus-diphtheria and acellular pertussis (Tdap) vaccine: have one at or after age 19 as one of your tetanus-diphtheria vaccines if you did not receive it as an adolescent. Tetanus-diphtheria: have a booster (or Tdap) every 10 years. Varicella vaccine: receive 2 doses if you never had chickenpox or the varicella vaccine. Hepatitis B vaccine: receive 2, 3, or 4 doses, depending on your exact circumstances. Measles, mumps, and rubella (MMR) vaccine: receive 1 to 2 doses if you are not already immune to MMR. Your provider can tell you if you are immune. Ask your provider about the human papillomavirus (HPV) vaccine if: You have not received the HPV vaccine in the past You have not completed the full vaccine series (you should catch up on this shot) Ask your provider if you should receive other immunizations if you have certain health problems that increase your risk for some diseases such as pneumonia. INFECTIOUS DISEASE SCREENING Women who are sexually active should be screened for chlamydia and gonorrhea up until age 25. Women 25 years and older should be screened for chlamydia and gonorrhea if at high risk. Screening for hepatitis C: All adults ages 18 to 79 should get a one-time test for hepatitis C. people should be screened at every . Screening for human immunodeficiency virus (HIV): All people ages 15 to 65 should get a one-time test for HIV. Depending on your lifestyle and medical history, you may also need to be screened for infections such as syphilis and HIV, as well as other infections. PHYSICAL EXAM All adults should visit their provider from time to time, even if they are healthy. The purpose of these visits is to: Screen for disease Assess your risk of future medical problems Encourage a healthy lifestyle Update your vaccinations and other preventive care services Maintain a relationship with a provider in case of an illness Your height, weight, and BMI should be checked at every exam. During your exam, your provider may ask you about: Depression and anxiety Diet and exercise Alcohol and tobacco use Safety issues, such as using seat belts, smoke detectors, and intimate partner violence Your medicines and risk for interactions SKIN SELF-EXAM Your provider may check your skin for signs of skin cancer, especially if you're at high risk, such as if you: Have had skin cancer before Have close relatives with skin cancer Have a weakened immune system OTHER SCREENING Talk with your provider about colon cancer screening if you have a strong family history of colon cancer or polyps, or if you have had inflammatory bowel disease or polyps yourself. Routine bone density screening of women under 40 is not recommended.
[2024-05-26 08:21] VITALS: BP 98/66; PULSE 99; RESP 12; TEMP 36.2; O2SAT 98; BMI 30.3
== END 2024-05-26 09:09 | disposition home or self-care (01) ==
PROVIDERS: PCP Nurse Practitioner Family; Visit Provider Nurse Practitioner Family
DX: Z00.00 Encounter for general adult medical examination without abnormal findings (principal); Z23 Encounter for immunization; E78.2 Mixed hyperlipidemia; F33.42 Major depressive disorder, recurrent, in full remission; G43.009 Migraine without aura, not intractable, without status migrainosus; J45.20 Mild intermittent asthma, uncomplicated; L40.9 Psoriasis, unspecified; J30.2 Other seasonal allergic rhinitis; Z68.30 Body mass index [BMI] 30.0-30.9, adult; E66.811 Obesity, class 1; M35.7 Hypermobility syndrome

== ENCOUNTER → 2024-05-26 08:04 | Outpatient (BNVA) | payer BC, SELFPAY | PROVIDERS: PCP Nurse Practitioner Family; Visit Provider Nurse Practitioner Family | DX: Z00.00 Encounter for general adult medical examination without abnormal findings (principal); Z23 Encounter for immunization; E78.2 Mixed hyperlipidemia; F33.42 Major depressive disorder, recurrent, in full remission; G43.009 Migraine without aura, not intractable, without status migrainosus; J45.20 Mild intermittent asthma, uncomplicated; L40.9 Psoriasis, unspecified; J30.2 Other seasonal allergic rhinitis; E66.811 Obesity, class 1; Z68.30 Body mass index [BMI] 30.0-30.9, adult; M35.7 Hypermobility syndrome | CPT/HCPCS: 90471; 90472; 90656; 90715; 96127; 96160 ==